=== PATIENT | male | born 1995 | race Caucasian/White ===

== ENCOUNTER 2017-03-04 22:10 | Emergency (ER) | payer MEDICAID, OTHER ==
[~2017-03-04] VITALS: Ht 167.6 cm; Wt 50.0 kg
[2017-03-05] MEDS ORDERED: IBUPROFEN 800MG TABLET PO ONE (00:45)
[2017-03-05 02:05] VITALS: BP 129/74
== END 2017-03-05 02:35 | disposition home or self-care (01) ==
LOC: ER 22:10
DX: R05 Cough (principal); I10 Essential (primary) hypertension; Z87.891 Personal history of nicotine dependence
CPT/HCPCS: 71010; 99283

== ENCOUNTER 2018-12-19 01:15 | Emergency (ER) | payer SELFPAY ==
[~2018-12-19] VITALS: Ht 165.1 cm; Wt 46.0 kg
[2018-12-19 01:32] VITALS: BP 125/88
== END 2018-12-19 03:56 | disposition left against medical advice (07) ==
LOC: ER 01:15
DX: Z53.21 Procedure and treatment not carried out due to patient leaving prior to being seen by health care provider (principal)

== ENCOUNTER 2018-12-19 04:15 | Emergency (ER) | payer MEDICAID ==
[~2018-12-19] VITALS: Ht 165.1 cm; Wt 46.0 kg
[2018-12-19] MEDS ORDERED: ONDANSETRON HCL 4MG/2ML INJ IV STA (12:31)
[2018-12-19] MEDS ORDERED: SODIUM CHLORIDE 0.9% 1,000 ML IV ONE (12:31)
[2018-12-19] MEDS ORDERED: MORPHINE SULFATE 4 MG/ML CPJ (NOT FOR IM USE) IV STA (12:31)
[2018-12-19 14:11] VITALS: BP 127/80
== END 2018-12-19 14:37 | disposition short-term general hospital (02) ==
LOC: ER 04:15
DX: S06.9X9A Unspecified intracranial injury with loss of consciousness of unspecified duration, initial encounter (principal); S02.69XB Fracture of mandible of other specified site, initial encounter for open fracture; Y04.2XXA Assault by strike against or bumped into by another person, initial encounter; Y93.89 Activity, other specified; Y92.89 Other specified places as the place of occurrence of the external cause; F10.129 Alcohol abuse with intoxication, unspecified; Y90.9 Presence of alcohol in blood, level not specified
CPT/HCPCS: 70450; 70486; 72125; 96361; 96374; 96375; 99291; J2270; J2405; J7030; Z7610

== ENCOUNTER 2019-01-27 20:08 | Emergency (ER) | payer SELFPAY ==
[~2019-01-27] VITALS: Ht 167.6 cm; Wt 39.7 kg
[2019-01-27 20:40] VITALS: BP 105/71
== END 2019-01-28 00:34 | disposition left against medical advice (07) ==
LOC: ER 20:08
DX: Z53.21 Procedure and treatment not carried out due to patient leaving prior to being seen by health care provider (principal)

== ENCOUNTER 2021-07-15 03:41 | Inpatient (IN) | payer MEDICAID ==
[~2021-07-15] VITALS: Ht 162.6 cm; Wt 54.9 kg
[2021-07-15] MEDS ORDERED: ONDANSETRON HCL 4MG/2ML INJ IV STA (03:59)
[2021-07-15] MEDS ORDERED: MORPHINE SULFATE 4 MG/ML CPJ (NOT FOR IM USE) IV STA (03:59)
[2021-07-15] MEDS ORDERED: SODIUM CHLORIDE 0.9% 1,000 ML IV ONE (04:00)
[2021-07-15 04:41] LABS: HEMOGLOBIN. 16.1 g/dL (14.0-18.0); MEAN CORPUSCULAR HEMOGLOBIN 28.7 pg (28.0-32.0); MEAN CORPUSCULAR VOLUME 83.8 fL (80.0-94.0); MEAN PLATELET VOLUME 7.9 fl (7.4-10.4); PLATELET 217 x1000/uL (130-400); RED BLOOD CELL COUNT 5.61 mill/uL (4.7-6.1); RED CELL DISTRIBUTION WIDTH 12.6 % (11.6-14.6)
[2021-07-15 04:54] LABS: CHLORIDE 105 mEq/L (98-107)
[2021-07-15] MEDS ORDERED: MORPHINE SULFATE 2 MG/ML CPJ (NOT FOR IM USE) IV ONE (05:00)
[2021-07-15 05:13] LABS: CLARITY URINE CLEAR (CLEAR); COLOR URINE DARK YELLOW (YELLOW); KETONES URINE 3+ (NEGATIVE); LEUKOCYTE ESTERASE URINE NEGATIVE (NEGATIVE); NITRITE URINE NEGATIVE (NEGATIVE); OCCULT BLOOD URINE NEGATIVE (NEGATIVE); PROTEIN URINE TRACE (NEGATIVE); SPECIFIC GRAVITY URINE 1.034 (1.005-1.030)
[2021-07-15 05:30] LABS: PLATELET ESTIMATE NORMAL
[2021-07-15] MEDS ORDERED: DIATR MEGLU/DIATRIZOATE SOLN 120ML ONE (06:40)
[2021-07-15] MEDS ORDERED: PIPERACILLIN/TAZ 3.375G PREMIX 50 ML IV ONE (08:00)
[2021-07-15] MEDS ORDERED: KETOROLAC 15MG/ML VIAL IV PRN (12:15)
[2021-07-15] MEDS ORDERED: NALOXONE HCL 0.4MG/ML VIAL IV PRN (12:15)
[2021-07-15] MEDS ORDERED: HYDROCODONE/ACETAMINOPHEN 5/325MG TABLET PO PRN (12:15)
[2021-07-15] MEDS ORDERED: ONDANSETRON HCL 4MG/2ML INJ IV PRN (12:15)
[2021-07-15] MEDS ORDERED: LEVOFLOXACIN 500MG PREMIX 100 ML IV SCH (12:15)
[2021-07-15] MEDS ORDERED: CLONIDINE 0.1MG TABLET PO PRN (12:15)
[2021-07-15] MEDS ORDERED: ACETAMINOPHEN 325MG TABLET PO PRN (12:15)
[2021-07-15] MEDS: PANTOPRAZOLE SODIUM 40 MG/VIAL IV SCH (12:15)
[2021-07-15] MEDS: LEVOFLOXACIN 500MG PREMIX 100 ML IV SCH (13:06)
[2021-07-15] MEDS: DEXT 5%/0.45% NACL 1000ML 1,000 ML IV SCH (13:06)
[2021-07-15] MEDS: MAGNESIUM/ALUMINUM HYDROXIDE/SIMETHICONE 30ML UDC PO PRN (20:19)
[2021-07-15 22:02] VITALS: BP 118/75
[2021-07-15 22:03] VITALS: BP 118/75
[2021-07-16] VITALS: BP 125/77
[2021-07-16] MEDS: DEXT 5%/0.45% NACL 1000ML 1,000 ML IV SCH (01:38)
[2021-07-16 04:00] VITALS: BP 102/72
[2021-07-16 05:59] LABS: BASOPHILS % 0.2 % (0.0-2.0); EOSINOPHILS % 2.5 % (0.0-5.0); HEMATOCRIT. 39.2 % (42.0-52.0); HEMOGLOBIN. 13.3 g/dL (14.0-18.0); LYMPHOCYTES % 20.5 % (20.0-50.0); MEAN CORPUSCULAR HEMOGLOBIN 28.7 pg (28.0-32.0); MEAN CORPUSCULAR VOLUME 84.3 fL (80.0-94.0); MONOCYTES % 12.3 % (2.0-8.0); NEUTROPHILS % 64.5 % (40.0-76.0); PLATELET 170 x1000/uL (130-400); RED BLOOD CELL COUNT 4.65 mill/uL (4.7-6.1); RED CELL DISTRIBUTION WIDTH 12.9 % (11.6-14.6)
[2021-07-16 06:19] LABS: CHLORIDE 106 mEq/L (98-107)
[2021-07-16 08:00] VITALS: BP 104/70
[2021-07-16] MEDS: PANTOPRAZOLE SODIUM 40 MG/VIAL IV SCH (09:47)
[2021-07-16] MEDS: MAGNESIUM/ALUMINUM HYDROXIDE/SIMETHICONE 30ML UDC PO PRN (09:47)
[2021-07-16] MEDS: LEVOFLOXACIN 500MG PREMIX 100 ML IV SCH (11:56)
[2021-07-16 12:00] VITALS: BP 105/65
[2021-07-16] MEDS ORDERED: INFLUENZA VACCINE 05/PF 0.5 ML SYRINGE IM ONE (12:00)
[2021-07-16] MEDS ORDERED: PNEUMOCOCCAL 23-VAL P-SAC VAC 0.5 ML IM ONE (12:00)
[2021-07-16 14:04] VITALS: BP 105/65
[2021-07-16 16:00] VITALS: BP 114/73
== END 2021-07-16 16:20 | disposition home or self-care (01) | DRG 249 ==
LOC: ER 04:29 → MICUSO 07:58 → 6EST 20:43
PROVIDERS: ADMIT Hospitalist; ATTEND Hospitalist
DX: K52.9 Noninfective gastroenteritis and colitis, unspecified (principal); F41.9 Anxiety disorder, unspecified; I10 Essential (primary) hypertension
CPT/HCPCS: 36415; 74176; 80053; 81003; 83605; 85025; 90686; 99285; C9113; J1885; J1956; J2270; J2405; J2543; J7030; Q9963

== ENCOUNTER 2022-06-08 12:53 | Emergency (ER) | payer MEDICAID ==
[~2022-06-08] VITALS: Ht 165.1 cm; Wt 61.0 kg
[2022-06-08 12:54] VITALS: BP 137/99
[2022-06-08] MEDS ORDERED: IBUPROFEN 600MG TABLET PO ONE (13:45)
[2022-06-08 14:23] LABS: CLARITY URINE CLEAR (CLEAR); COLOR URINE YELLOW (YELLOW); KETONES URINE NEGATIVE (NEGATIVE); LEUKOCYTE ESTERASE URINE NEGATIVE (NEGATIVE); NITRITE URINE NEGATIVE (NEGATIVE); OCCULT BLOOD URINE NEGATIVE (NEGATIVE); PROTEIN URINE NEGATIVE (NEGATIVE); SPECIFIC GRAVITY URINE 1.026 (1.005-1.030); UROBILINOGEN URINE 0.2 E.U./dL (0.2-1.0)
[2022-06-08] MEDS ORDERED: IBUP-2029 MT (15:07)
== END 2022-06-08 15:34 | disposition home or self-care (01) ==
LOC: ER 12:53
DX: R10.2 Pelvic and perineal pain (principal); N50.812 Left testicular pain; N50.811 Right testicular pain
CPT/HCPCS: 76870; 81003; 93976; 99284

== ENCOUNTER 2023-05-17 13:08 | Emergency (ER) | payer MEDICAID ==
[~2023-05-17] VITALS: Ht 167.6 cm; Wt 56.8 kg
[~2023-05-17 13:08] MED LIST: IBUP-2029 MT
[2023-05-17 13:32] VITALS: BP 132/80; PULSE 90; RESP 18; TEMP 98.1; O2SAT 99
[2023-05-17] MEDS ORDERED: LORAZEPAM 0.5MG TABLET PO ONE (16:30)
[2023-05-17] MEDS ORDERED: HYDR-3782 MT (16:37)
== END 2023-05-17 17:15 | disposition home or self-care (01) ==
LOC: ER 13:08
DX: R00.2 Palpitations (principal); I10 Essential (primary) hypertension
CPT/HCPCS: 93005; 99283

== ENCOUNTER 2023-08-20 01:39 | Emergency (ER) | payer MEDICAID ==
[~2023-08-20] VITALS: Ht 167.6 cm; Wt 45.5 kg
[~2023-08-20 01:39] MED LIST changes: +HYDR-3782 MT
[2023-08-20 01:52] VITALS: O2SAT 98
[2023-08-20 02:29] LABS: BASOPHILS % 0.4 % (0.0-2.0); EOSINOPHILS % 2.4 % (0.0-5.0); HEMATOCRIT. 43.7 % (42.0-52.0); HEMOGLOBIN. 14.9 g/dL (14.0-18.0); MEAN CORPUSCULAR HEMOGLOBIN 28.8 pg (28.0-32.0); MEAN CORPUSCULAR VOLUME 84.7 fL (80.0-94.0); MEAN PLATELET VOLUME 8.1 fl (7.4-10.4); MONOCYTES % 9.4 % (2.0-8.0); NEUTROPHILS % 58.8 % (40.0-76.0); PLATELET 232 x1000/uL (130-400); RED BLOOD CELL COUNT 5.16 mill/uL (4.7-6.1); RED CELL DISTRIBUTION WIDTH 12.8 % (11.6-14.6); WHITE BLOOD COUNT 9.2 x1000/uL (4.5-11.0)
[2023-08-20 02:42] LABS: ACETAMINOPHEN < 2 ug/mL (10-30); ALANINE AMINOTRANSFERASE 65 IU/L (10-49); ALBUMIN 4.4 g/dL (3.2-4.8); ASPARTATE AMINOTRANSFERASE 43 IU/L (<34); BILIRUBIN TOTAL 1.4 mg/dL (0.1-1.0); CALCIUM 9.1 mg/dL (8.7-10.4); CARBON DIOXIDE 28 mEq/L (21-32); CHLORIDE 106 mEq/L (98-107); CREATININE 0.9 mg/dL (0.6-1.3); GLUCOSE 111 mg/dL (70-105); POTASSIUM 3.5 mEq/L (3.5-5.1); PROTEIN TOTAL 6.7 g/dL (6.0-8.3); SODIUM 141 mEq/L (136-145); UREA NITROGEN BLOOD 11 mg/dL (9-23)
[2023-08-20 02:43] LABS: CLARITY URINE CLEAR (CLEAR); COLOR URINE YELLOW (YELLOW); GLUCOSE URINE NEGATIVE (NEGATIVE); KETONES URINE NEGATIVE (NEGATIVE); LEUKOCYTE ESTERASE URINE NEGATIVE (NEGATIVE); NITRITE URINE NEGATIVE (NEGATIVE); OCCULT BLOOD URINE NEGATIVE (NEGATIVE); PH URINE 6.5 (4.5-8.0); PROTEIN URINE NEGATIVE (NEGATIVE); SPECIFIC GRAVITY URINE 1.019 (1.005-1.030)
[2023-08-20 03:11] LABS: *AMPHETAMINES SCREEN URINE NEGATIVE (NEGATIVE); *BARBITURATES SCREEN URINE NEGATIVE (NEGATIVE); *BENZODIAZEPINES SCREEN URINE NEGATIVE (NEGATIVE); *COCAINE SCREEN URINE NEGATIVE (NEGATIVE); CANNABINOID URINE SCREEN PRESUMPTIVE POSITIVE (NEGATIVE); ECSTASY MDMA SCREEN URINE NEGATIVE (NEGATIVE); METHADONE URINE SCREEN Neg (NEGATIVE); OPIATES URINE SCREEN NEGATIVE (NEGATIVE); PHENCYCLIDINE URINE SCREEN NEGATIVE (NEGATIVE)
[2023-08-20 03:46] LABS: ETHANOL BLOOD < 10 mg/dL (<10)
[2023-08-20 13:00] VITALS: BP 124/80; PULSE 14; RESP 18; TEMP 98.5
== END 2023-08-20 13:37 | disposition home or self-care (01) ==
LOC: ER 01:39
DX: R45.851 Suicidal ideations (principal); F22 Delusional disorders; I10 Essential (primary) hypertension; F12.10 Cannabis abuse, uncomplicated; Z20.822 Contact with and (suspected) exposure to COVID-19
CPT/HCPCS: 80053; 80305; 81003; 80307; 80329; 80320; 85025; 36415; 99285; 87426; C9803; G0480

== ENCOUNTER 2023-08-31 13:23 | Emergency (ER) | payer MEDICAID ==
[~2023-08-31] VITALS: Ht 165.1 cm; Wt 50.0 kg
[2023-08-31 13:25] VITALS: O2SAT 97
[2023-08-31 14:33] LABS: BASOPHILS % 0.4 % (0.0-2.0); EOSINOPHILS % 1.6 % (0.0-5.0); HEMOGLOBIN. 14.2 g/dL (14.0-18.0); LYMPHOCYTES % 14.6 % (20.0-50.0); MEAN CORPUSCULAR HEMOGLOBIN 28.7 pg (28.0-32.0); MEAN CORPUSCULAR HGB CONC 33.8 g/dL (31.0-37.0); MEAN CORPUSCULAR VOLUME 84.9 fL (80.0-94.0); MEAN PLATELET VOLUME 7.8 fl (7.4-10.4); MONOCYTES % 7.8 % (2.0-8.0); NEUTROPHILS % 75.6 % (40.0-76.0); PLATELET 230 x1000/uL (130-400); RED BLOOD CELL COUNT 4.95 mill/uL (4.7-6.1); RED CELL DISTRIBUTION WIDTH 12.4 % (11.6-14.6); WHITE BLOOD COUNT 8.5 x1000/uL (4.5-11.0)
[2023-08-31 14:47] LABS: ACETAMINOPHEN < 2 ug/mL (10-30); ALANINE AMINOTRANSFERASE 25 IU/L (10-49); ALBUMIN 4.4 g/dL (3.2-4.8); ASPARTATE AMINOTRANSFERASE 24 IU/L (<34); BILIRUBIN TOTAL 1.4 mg/dL (0.1-1.0); CARBON DIOXIDE 26 mEq/L (21-32); CHLORIDE 106 mEq/L (98-107); CREATININE 0.7 mg/dL (0.6-1.3); GLUCOSE 89 mg/dL (70-105); POTASSIUM 3.7 mEq/L (3.5-5.1); PROTEIN TOTAL 6.9 g/dL (6.0-8.3); SODIUM 139 mEq/L (136-145); UREA NITROGEN BLOOD 11 mg/dL (9-23)
[2023-08-31 14:51] LABS: ETHANOL BLOOD < 10 mg/dL (<10)
[2023-08-31 15:40] LABS: CLARITY URINE CLEAR (CLEAR); COLOR URINE YELLOW (YELLOW); GLUCOSE URINE NEGATIVE (NEGATIVE); KETONES URINE TRACE (NEGATIVE); LEUKOCYTE ESTERASE URINE NEGATIVE (NEGATIVE); NITRITE URINE NEGATIVE (NEGATIVE); OCCULT BLOOD URINE NEGATIVE (NEGATIVE); PH URINE 6.5 (4.5-8.0); PROTEIN URINE NEGATIVE (NEGATIVE); SPECIFIC GRAVITY URINE 1.011 (1.005-1.030); UROBILINOGEN URINE 0.2 E.U./dL (0.2-1.0)
[2023-08-31 19:01] LABS: *AMPHETAMINES SCREEN URINE NEGATIVE (NEGATIVE); *BARBITURATES SCREEN URINE NEGATIVE (NEGATIVE); *BENZODIAZEPINES SCREEN URINE NEGATIVE (NEGATIVE); *COCAINE SCREEN URINE NEGATIVE (NEGATIVE); CANNABINOID URINE SCREEN NEGATIVE (NEGATIVE); METHADONE URINE SCREEN Neg (NEGATIVE); OPIATES URINE SCREEN NEGATIVE (NEGATIVE); PHENCYCLIDINE URINE SCREEN NEGATIVE (NEGATIVE)
[2023-09-01] MEDS ORDERED: LORAZEPAM 1MG TABLET PO ONE (04:00)
[2023-09-01] MEDS ORDERED: OLANZAPINE 5MG TABLET ODT PO SCH (09:30)
[2023-09-01 10:00] VITALS: BP 119/71; PULSE 110; RESP 18; TEMP 98
== END 2023-09-01 11:57 | disposition home or self-care (01) ==
LOC: ER 13:23
DX: R45.851 Suicidal ideations (principal); F41.9 Anxiety disorder, unspecified; F32.A Depression, unspecified; F12.90 Cannabis use, unspecified, uncomplicated; Z20.822 Contact with and (suspected) exposure to COVID-19
CPT/HCPCS: 80053; 80305; 81003; 80307; 80329; 80320; 85025; 36415; 99285; 87426; C9803; G0480

== ENCOUNTER 2023-09-14 19:31 | Emergency (ER) | payer MEDICAID ==
[~2023-09-14] VITALS: Ht 167.6 cm; Wt 65.0 kg
[2023-09-14 19:40] VITALS: BP 115/78; PULSE 78; RESP 16; TEMP 97.9; O2SAT 100
[2023-09-14] MEDS ORDERED: HYDR50TA55 MT (19:41)
== END 2023-09-14 20:05 | disposition home or self-care (01) ==
LOC: ER 19:31
DX: F41.9 Anxiety disorder, unspecified (principal); F32.A Depression, unspecified; F12.90 Cannabis use, unspecified, uncomplicated
CPT/HCPCS: 99283

== ENCOUNTER 2023-09-23 17:23 | Emergency (ER) | payer MEDICAID ==
[~2023-09-23] VITALS: Ht 165.1 cm; Wt 57.0 kg
[~2023-09-23 17:23] MED LIST changes: +HYDR50TA55 MT
[2023-09-23 17:27] VITALS: O2SAT 98
[2023-09-23] MEDS ORDERED: DIAZEPAM 5 MG TABLET PO ONE (17:45)
[2023-09-23 18:02] LABS: BASOPHILS % 0.2 % (0.0-2.0); EOSINOPHILS % 1.9 % (0.0-5.0); HEMATOCRIT. 44.7 % (42.0-52.0); HEMOGLOBIN. 14.5 g/dL (14.0-18.0); LYMPHOCYTES % 14.8 % (20.0-50.0); MEAN CORPUSCULAR HEMOGLOBIN 28.4 pg (28.0-32.0); MEAN CORPUSCULAR HGB CONC 32.5 g/dL (31.0-37.0); MEAN CORPUSCULAR VOLUME 87.4 fL (80.0-94.0); MEAN PLATELET VOLUME 7.8 fl (7.4-10.4); MONOCYTES % 7.5 % (2.0-8.0); NEUTROPHILS % 75.6 % (40.0-76.0); PLATELET 225 x1000/uL (130-400); RED BLOOD CELL COUNT 5.11 mill/uL (4.7-6.1); RED CELL DISTRIBUTION WIDTH 12.8 % (11.6-14.6); WHITE BLOOD COUNT 9.4 x1000/uL (4.5-11.0)
[2023-09-23 18:17] LABS: ACETAMINOPHEN < 2 ug/mL (10-30); ALANINE AMINOTRANSFERASE 62 IU/L (10-49); ALBUMIN 4.6 g/dL (3.2-4.8); ASPARTATE AMINOTRANSFERASE 24 IU/L (<34); BILIRUBIN TOTAL 1.1 mg/dL (0.1-1.0); CALCIUM 9.3 mg/dL (8.7-10.4); CARBON DIOXIDE 26 mEq/L (21-32); CHLORIDE 106 mEq/L (98-107); CREATININE 0.7 mg/dL (0.6-1.3); GLUCOSE 83 mg/dL (70-105); POTASSIUM 3.7 mEq/L (3.5-5.1); PROTEIN TOTAL 7.7 g/dL (6.0-8.3); SODIUM 141 mEq/L (136-145); UREA NITROGEN BLOOD 12 mg/dL (9-23)
[2023-09-23 18:21] LABS: ETHANOL BLOOD < 10 mg/dL (<10)
[2023-09-23 19:46] LABS: CLARITY URINE CLEAR (CLEAR); COLOR URINE YELLOW (YELLOW); GLUCOSE URINE NEGATIVE (NEGATIVE); KETONES URINE NEGATIVE (NEGATIVE); LEUKOCYTE ESTERASE URINE NEGATIVE (NEGATIVE); NITRITE URINE NEGATIVE (NEGATIVE); OCCULT BLOOD URINE NEGATIVE (NEGATIVE); PROTEIN URINE NEGATIVE (NEGATIVE); SPECIFIC GRAVITY URINE 1.011 (1.005-1.030); UROBILINOGEN URINE 0.2 E.U./dL (0.2-1.0)
[2023-09-23 19:55] LABS: *AMPHETAMINES SCREEN URINE NEGATIVE (NEGATIVE); *BARBITURATES SCREEN URINE NEGATIVE (NEGATIVE); *BENZODIAZEPINES SCREEN URINE NEGATIVE (NEGATIVE); *COCAINE SCREEN URINE NEGATIVE (NEGATIVE); CANNABINOID URINE SCREEN NEGATIVE (NEGATIVE); ECSTASY MDMA SCREEN URINE NEGATIVE (NEGATIVE); METHADONE URINE SCREEN Neg (NEGATIVE); OPIATES URINE SCREEN NEGATIVE (NEGATIVE); PHENCYCLIDINE URINE SCREEN NEGATIVE (NEGATIVE)
[2023-09-24] MEDS ORDERED: QUETIAPINE FUMARATE 50MG TABLET PO SCH (11:00)
[2023-09-24 13:48] VITALS: BP 115/74; PULSE 92; RESP 16; TEMP 98
== END 2023-09-24 15:21 | disposition still patient (30) ==
LOC: ER 17:23
DX: R45.851 Suicidal ideations (principal); F41.9 Anxiety disorder, unspecified; R44.0 Auditory hallucinations; F32.9 Major depressive disorder, single episode, unspecified; F12.10 Cannabis abuse, uncomplicated; Z20.822 Contact with and (suspected) exposure to COVID-19
CPT/HCPCS: 80053; 80305; 81003; 80307; 80329; 80320; 85025; 36415; 99283; 87426; C9803; Z7610; G0480

== ENCOUNTER 2023-09-24 17:24 | Emergency (ER) | payer MEDICAID ==
[~2023-09-24] VITALS: Ht 165.1 cm; Wt 57.0 kg
[2023-09-24 17:32] VITALS: O2SAT 96
[2023-09-24] MEDS ORDERED: ACETAMINOPHEN 500MG TABLET PO ONE (18:00)
[2023-09-24] MEDS ORDERED: IBUPROFEN 600MG TABLET PO ONE (18:00)
[2023-09-24 20:21] LABS: CLARITY URINE CLEAR (CLEAR); COLOR URINE YELLOW (YELLOW); GLUCOSE URINE NEGATIVE (NEGATIVE); KETONES URINE TRACE (NEGATIVE); LEUKOCYTE ESTERASE URINE NEGATIVE (NEGATIVE); NITRITE URINE NEGATIVE (NEGATIVE); OCCULT BLOOD URINE NEGATIVE (NEGATIVE); PH URINE 6.5 (4.5-8.0); PROTEIN URINE NEGATIVE (NEGATIVE); SPECIFIC GRAVITY URINE 1.029 (1.005-1.030)
[2023-09-25 02:00] VITALS: BP 137/68; PULSE 74; RESP 12; TEMP 98.5
== END 2023-09-25 07:39 | disposition home or self-care (01) ==
LOC: ER 17:24
DX: R50.9 Fever, unspecified (principal); F12.10 Cannabis abuse, uncomplicated; F41.9 Anxiety disorder, unspecified; F32.9 Major depressive disorder, single episode, unspecified; F20.9 Schizophrenia, unspecified; Z20.822 Contact with and (suspected) exposure to COVID-19
CPT/HCPCS: 99285; 71045; 87426; 81003; 87804 ×2; 93005; C9803

== ENCOUNTER 2023-10-04 13:28 | Emergency (ER) | payer MEDICAID ==
[~2023-10-04] VITALS: Ht 167.6 cm; Wt 50.0 kg
[2023-10-04 13:33] VITALS: O2SAT 98
[2023-10-04 14:24] LABS: BASOPHILS % 0.3 % (0.0-2.0); EOSINOPHILS % 1.2 % (0.0-5.0); HEMATOCRIT. 41.2 % (42.0-52.0); HEMOGLOBIN. 13.7 g/dL (14.0-18.0); LYMPHOCYTES % 11.7 % (20.0-50.0); MEAN CORPUSCULAR HGB CONC 33.2 g/dL (31.0-37.0); MEAN CORPUSCULAR VOLUME 84.1 fL (80.0-94.0); MEAN PLATELET VOLUME 6.9 fl (7.4-10.4); MONOCYTES % 10.9 % (2.0-8.0); NEUTROPHILS % 75.9 % (40.0-76.0); PLATELET 312 x1000/uL (130-400); RED BLOOD CELL COUNT 4.89 mill/uL (4.7-6.1); RED CELL DISTRIBUTION WIDTH 12.7 % (11.6-14.6); WHITE BLOOD COUNT 9.4 x1000/uL (4.5-11.0)
[2023-10-04 14:34] LABS: ACETAMINOPHEN < 2 ug/mL (10-30); ALANINE AMINOTRANSFERASE 113 IU/L (10-49); ALBUMIN 4.4 g/dL (3.2-4.8); ASPARTATE AMINOTRANSFERASE 38 IU/L (<34); BILIRUBIN TOTAL 0.6 mg/dL (0.1-1.0); CALCIUM 8.9 mg/dL (8.7-10.4); CARBON DIOXIDE 31 mEq/L (21-32); CHLORIDE 105 mEq/L (98-107); CREATININE 0.8 mg/dL (0.6-1.3); GLUCOSE 93 mg/dL (70-105); POTASSIUM 3.5 mEq/L (3.5-5.1); PROTEIN TOTAL 7.3 g/dL (6.0-8.3); SODIUM 141 mEq/L (136-145); UREA NITROGEN BLOOD 14 mg/dL (9-23)
[2023-10-04 14:35] LABS: ETHANOL BLOOD < 10 mg/dL (<10)
[2023-10-04 16:29] LABS: *AMPHETAMINES SCREEN URINE NEGATIVE (NEGATIVE); *BARBITURATES SCREEN URINE NEGATIVE (NEGATIVE); *BENZODIAZEPINES SCREEN URINE NEGATIVE (NEGATIVE); *COCAINE SCREEN URINE NEGATIVE (NEGATIVE); CANNABINOID URINE SCREEN NEGATIVE (NEGATIVE); ECSTASY MDMA SCREEN URINE NEGATIVE (NEGATIVE); METHADONE URINE SCREEN Neg (NEGATIVE); OPIATES URINE SCREEN NEGATIVE (NEGATIVE); PHENCYCLIDINE URINE SCREEN NEGATIVE (NEGATIVE)
[2023-10-04] MEDS ORDERED: LORAZEPAM 0.5MG TABLET PO ONE (17:45)
[2023-10-05] MEDS ORDERED: SERTRALINE HCL 25MG TABLET PO SCH (12:00)
[2023-10-05] MEDS ORDERED: LORAZEPAM 0.5MG TABLET PO ONE (12:30)
[2023-10-05 16:00] VITALS: BP 127/71; PULSE 76; RESP 17; TEMP 98.2
== END 2023-10-05 16:56 | disposition short-term general hospital (02) ==
LOC: ER 13:40
DX: R45.851 Suicidal ideations (principal); F41.9 Anxiety disorder, unspecified; F32.A Depression, unspecified; F20.9 Schizophrenia, unspecified; Z20.822 Contact with and (suspected) exposure to COVID-19
CPT/HCPCS: 36415; 80053; 80305; 80307; 80320; 80329; 85025; 87426; 99285; G0480

== ENCOUNTER 2023-11-14 15:26 | Emergency (ER) | payer MEDICAID ==
[~2023-11-14] VITALS: Ht 167.6 cm; Wt 57.0 kg
[2023-11-14 15:47] VITALS: BP 132/87; PULSE 95; RESP 18; TEMP 97.9; O2SAT 100
== END 2023-11-14 17:36 | disposition left against medical advice (07) ==
LOC: ER 15:26
DX: R51.9 Headache, unspecified (principal); Z53.21 Procedure and treatment not carried out due to patient leaving prior to being seen by health care provider
CPT/HCPCS: 99281

== ENCOUNTER 2023-11-14 17:20 | Emergency (ER) | payer MEDICAID ==
[~2023-11-14] VITALS: Ht 165.1 cm; Wt 57.0 kg
[2023-11-14 17:47] VITALS: BP 120/83; PULSE 97; RESP 16; TEMP 98.2; O2SAT 98
[2023-11-14 19:38] LABS: BASOPHILS % 0.3 % (0.0-2.0); EOSINOPHILS % 0.7 % (0.0-5.0); HEMOGLOBIN. 13.1 g/dL (14.0-18.0); LYMPHOCYTES % 14.7 % (20.0-50.0); MEAN CORPUSCULAR HEMOGLOBIN 29.4 pg (28.0-32.0); MEAN CORPUSCULAR HGB CONC 33.6 g/dL (31.0-37.0); MEAN CORPUSCULAR VOLUME 87.5 fL (80.0-94.0); MONOCYTES % 8.2 % (2.0-8.0); NEUTROPHILS % 76.1 % (40.0-76.0); PLATELET 213 x1000/uL (130-400); RED BLOOD CELL COUNT 4.46 mill/uL (4.7-6.1); RED CELL DISTRIBUTION WIDTH 13.3 % (11.6-14.6); WHITE BLOOD COUNT 8.3 x1000/uL (4.5-11.0)
[2023-11-14 20:01] LABS: ACETAMINOPHEN < 2 ug/mL (10-30); ALANINE AMINOTRANSFERASE 918 IU/L (10-49); ALBUMIN 4.8 g/dL (3.2-4.8); ASPARTATE AMINOTRANSFERASE 332 IU/L (<34); CALCIUM 9.6 mg/dL (8.7-10.4); CARBON DIOXIDE 28 mEq/L (21-32); CHLORIDE 100 mEq/L (98-107); CREATININE 0.7 mg/dL (0.6-1.3); ETHANOL BLOOD < 10 mg/dL (<10); GLUCOSE 107 mg/dL (70-105); POTASSIUM 3.6 mEq/L (3.5-5.1); PROTEIN TOTAL 7.4 g/dL (6.0-8.3); SODIUM 135 mEq/L (136-145); THYROID STIMULATING HORMONE 0.89 uIU/mL (0.55-4.78); TROPONIN I HIGH SENSITIVITY < 4 ng/L (3.0-53); UREA NITROGEN BLOOD 10 mg/dL (9-23)
== END 2023-11-15 04:15 | disposition left against medical advice (07) ==
LOC: ER 17:20
DX: R45.851 Suicidal ideations (principal); F20.9 Schizophrenia, unspecified; R07.89 Other chest pain; F41.0 Panic disorder [episodic paroxysmal anxiety]; F32.9 Major depressive disorder, single episode, unspecified
CPT/HCPCS: 36415; 71045; 80053; 80307; 80320; 80329; 84443; 84484; 85025; 93005; 99285; G0480

== ENCOUNTER 2024-01-13 11:56 | Emergency (ER) | payer MEDICAID ==
[~2024-01-13] VITALS: Ht 167.6 cm; Wt 57.0 kg
[2024-01-13 12:03] VITALS: BP 104/60; PULSE 81; RESP 16; TEMP 98.3; O2SAT 99
[2024-01-13 12:39] LABS: BASOPHILS % 0.3 % (0.0-2.0); EOSINOPHILS % 1.8 % (0.0-5.0); HEMATOCRIT. 38.1 % (42.0-52.0); HEMOGLOBIN. 13.1 g/dL (14.0-18.0); LYMPHOCYTES % 19.4 % (20.0-50.0); MEAN CORPUSCULAR HEMOGLOBIN 30.9 pg (28.0-32.0); MEAN CORPUSCULAR HGB CONC 34.5 g/dL (31.0-37.0); MEAN CORPUSCULAR VOLUME 89.8 fL (80.0-94.0); MEAN PLATELET VOLUME 7.2 fl (7.4-10.4); MONOCYTES % 9.9 % (2.0-8.0); NEUTROPHILS % 68.6 % (40.0-76.0); PLATELET 343 x1000/uL (130-400); RED BLOOD CELL COUNT 4.25 mill/uL (4.7-6.1); RED CELL DISTRIBUTION WIDTH 13.1 % (11.6-14.6); WHITE BLOOD COUNT 5.4 x1000/uL (4.5-11.0)
[2024-01-13 14:13] LABS: CLARITY URINE CLEAR (CLEAR); COLOR URINE YELLOW (YELLOW); GLUCOSE URINE NEGATIVE (NEGATIVE); KETONES URINE NEGATIVE (NEGATIVE); LEUKOCYTE ESTERASE URINE NEGATIVE (NEGATIVE); NITRITE URINE NEGATIVE (NEGATIVE); OCCULT BLOOD URINE NEGATIVE (NEGATIVE); PH URINE 7.5 (4.5-8.0); PROTEIN URINE NEGATIVE (NEGATIVE); SPECIFIC GRAVITY URINE 1.008 (1.005-1.030); UROBILINOGEN URINE 0.2 E.U./dL (0.2-1.0)
[2024-01-13 14:39] LABS: *AMPHETAMINES SCREEN URINE NEGATIVE (NEGATIVE); *BARBITURATES SCREEN URINE NEGATIVE (NEGATIVE); *BENZODIAZEPINES SCREEN URINE NEGATIVE (NEGATIVE); *COCAINE SCREEN URINE NEGATIVE (NEGATIVE); CANNABINOID URINE SCREEN NEGATIVE (NEGATIVE); ECSTASY MDMA SCREEN URINE NEGATIVE (NEGATIVE); METHADONE URINE SCREEN Neg (NEGATIVE); OPIATES URINE SCREEN NEGATIVE (NEGATIVE); PHENCYCLIDINE URINE SCREEN NEGATIVE (NEGATIVE)
[2024-01-13 14:43] LABS: PHOSPHORUS 4.1 mg/dL (2.5-4.9); T4 FREE 1.36 ng/dL (0.89-1.76); THYROID STIMULATING HORMONE 0.76 uIU/mL (0.55-4.78)
[2024-01-13 14:47] LABS: ALANINE AMINOTRANSFERASE 356 IU/L (10-49); ALBUMIN 4.7 g/dL (3.2-4.8); ASPARTATE AMINOTRANSFERASE 95 IU/L (<34); BILIRUBIN TOTAL 0.7 mg/dL (0.1-1.0); CALCIUM 9.4 mg/dL (8.7-10.4); CARBON DIOXIDE 26 mEq/L (21-32); CHLORIDE 102 mEq/L (98-107); CREATININE 0.9 mg/dL (0.6-1.3); GLUCOSE 101 mg/dL (70-105); POTASSIUM 4.3 mEq/L (3.5-5.1); PROTEIN TOTAL 7.6 g/dL (6.0-8.3); SODIUM 136 mEq/L (136-145); UREA NITROGEN BLOOD 11 mg/dL (9-23)
[2024-01-13 15:00] LABS: TROPONIN I HIGH SENSITIVITY < 4 ng/L (3.0-53)
[2024-01-13] MEDS ORDERED: HYDR-459 MT (15:28)
== END 2024-01-13 15:49 | disposition home or self-care (01) ==
LOC: ER 11:56
DX: R00.2 Palpitations (principal); F41.9 Anxiety disorder, unspecified; F32.A Depression, unspecified; F20.9 Schizophrenia, unspecified; Z98.890 Other specified postprocedural states
CPT/HCPCS: 36415; 71045; 80053; 80305; 80320; 81003; 83735; 83880; 84100; 84439; 84443; 84484; 85025; 93005; 99285; G0480

== ENCOUNTER 2025-05-13 14:02 | Emergency (ER) | payer MEDICAID ==
[~2025-05-13] VITALS: Ht 170.2 cm; Wt 60.0 kg
[~2025-05-13 14:02] MED LIST changes: +HYDR-459 MT
[2025-05-13 14:07] VITALS: O2SAT 99
[2025-05-13 14:47] VITALS: BP 121/80; PULSE 73; RESP 16; TEMP 36.8; O2SAT 99
[2025-05-13 15:15] VITALS: TEMP 98.2
[2025-05-13] MEDS: ONDANSETRON 4MG ODT PO ONE (15:15)
[2025-05-13] MEDS: FAMOTIDINE 20MG TABLET PO ONE (15:15)
[2025-05-13] MEDS: ACETAMINOPHEN 325MG TABLET PO ONE (15:15)
[2025-05-13] MEDS: LIDOCAINE HCL 1% 20ML VIAL INFIL ONE (15:15)
[2025-05-13] MEDS: MAGNESIUM/ALUMINUM HYDROXIDE/SIMETHICONE 30ML UDC PO ONE (15:15)
[2025-05-13] MEDS: CEFTRIAXONE SODIUM 500MG VIAL IM ONE (15:15)
[2025-05-13 15:33] LABS: BASOPHILS % 0.8 % (0.0-2.0); EOSINOPHILS % 5.3 % (0.0-5.0); HEMATOCRIT. 42.7 % (42.0-52.0); HEMOGLOBIN. 14.3 g/dL (14.0-18.0); LYMPHOCYTES % 24.8 % (20.0-50.0); MEAN PLATELET VOLUME 7.6 fl (7.4-10.4); MONOCYTES % 13.4 % (2.0-8.0); NEUTROPHILS % 55.7 % (40.0-76.0); PLATELET 264 x1000/uL (130-400); RED BLOOD CELL COUNT 4.96 mill/uL (4.7-6.1); RED CELL DISTRIBUTION WIDTH 13.4 % (11.6-14.6)
[2025-05-13 15:45] LABS: CREATININE 0.8 mg/dL (0.6-1.3)
[2025-05-13 15:46] LABS: UREA NITROGEN BLOOD 10 mg/dL (9-23)
[2025-05-13 15:47] LABS: ASPARTATE AMINOTRANSFERASE 75 IU/L (<34)
[2025-05-13 15:48] LABS: BILIRUBIN DIRECT 0.2 mg/dL (<=3.0); BILIRUBIN TOTAL 0.8 mg/dL (0.1-1.0); PROTEIN TOTAL 6.9 g/dL (6.0-8.3)
[2025-05-13 16:32] LABS: CLARITY URINE CLEAR (CLEAR); COLOR URINE YELLOW (YELLOW); GLUCOSE URINE NEGATIVE (NEGATIVE); KETONES URINE NEGATIVE (NEGATIVE); LEUKOCYTE ESTERASE URINE NEGATIVE (NEGATIVE); NITRITE URINE NEGATIVE (NEGATIVE); OCCULT BLOOD URINE NEGATIVE (NEGATIVE); PH URINE 7.0 (4.5-8.0); PROTEIN URINE NEGATIVE (NEGATIVE); SPECIFIC GRAVITY URINE 1.022 (1.005-1.030); UROBILINOGEN URINE 0.2 E.U./dL (0.2-1.0)
[2025-05-13] MEDS ORDERED: DOXY100C5 MT (17:01)
[2025-05-13] MEDS ORDERED: ACET-2708 MT (17:01)
[2025-05-13] MEDS ORDERED: MAG355OR21 MT (17:01)
== END 2025-05-13 18:43 | disposition home or self-care (01) ==
LOC: ER 14:02
DX: N48.89 Other specified disorders of penis (principal); F20.9 Schizophrenia, unspecified; F41.9 Anxiety disorder, unspecified; Z11.3 Encounter for screening for infections with a predominantly sexual mode of transmission; Z79.899 Other long term (current) drug therapy
CPT/HCPCS: 99284; 80076; 80048; 81003; 83690; 85025; 36415; 96372; Q0162; J0696; J2003

== ENCOUNTER 2025-06-26 10:00 | Emergency (ER) | payer MEDICAID ==
[~2025-06-26] VITALS: Ht 170.2 cm; Wt 61.0 kg
[~2025-06-26 10:00] MED LIST changes: +ACET-2708 MT; +DOXY100C5 MT; +IBUP-1455 MT; -IBUP-2029 MT; +MAG355OR21 MT
[2025-06-26 10:09] VITALS: O2SAT 100
[2025-06-26] MEDS: HYDROXYZINE 25MG TABLET PO ONE (11:45)
[2025-06-26 12:03] VITALS: BP 118/80; PULSE 81; RESP 18; TEMP 37.1; O2SAT 100
== END 2025-06-26 12:04 | disposition home or self-care (01) ==
LOC: ER 10:00
DX: F41.1 Generalized anxiety disorder (principal); F43.9 Reaction to severe stress, unspecified; F20.9 Schizophrenia, unspecified; F31.9 Bipolar disorder, unspecified; F17.200 Nicotine dependence, unspecified, uncomplicated
CPT/HCPCS: 99283